=== PATIENT | male | born 1975 | race African-American/Black ===

== ENCOUNTER 2017-01-31 12:02 | Emergency (ER) | payer OTHER ==
[~2017-01-31] VITALS: Ht 185.4 cm; Wt 150.0 kg
[~2017-01-31 12:02] MED LIST: DOXY100T PO; Z.0.NO CURRENT MEDS
[2017-01-31 12:04] VITALS: BP 128/72; PULSE 74; RESP 16; TEMP 98.7; O2SAT 97
[2017-01-31] MEDS ORDERED: BYST10TA2 PO (12:40)
[2017-01-31] MEDS ORDERED: AZIL40TA PO (12:40)
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
[2017-01-31] MEDS ORDERED: SODIUM CHLOR 0.9% 1000 ML INJ 1,000 ML IV ONE (13:00)
[2017-01-31] MEDS ORDERED: KETOROLAC TROMETHAMINE 30 MG/ML (IVP) VIAL IV PUSH ONE (13:00)
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
[2017-01-31 13:25] LABS: AUTOMATED NEUTROPHIL # 5.6 TH/MM3 (1.8-7.7); BASOPHIL # 0.1 TH/MM3 (0-0.2); BASOPHIL % 0.9 % (0.0-2.0); EOSINOPHIL # 0.2 TH/MM3 (0-0.4); EOSINOPHIL % 1.7 % (0.0-4.0); HEMATOCRIT 47.4 % (39.0-51.0); HEMO FLAGS DIFF FINAL; LYMPH % 26.7 % (9.0-44.0); LYMPHOCYTE # 2.6 TH/MM3 (1.0-4.8); MEAN CELL VOLUME 84.1 FL (80.0-100.0); MEAN CORPUSCULAR HEMOGLOBIN 27.8 PG (27.0-34.0); MEAN CORPUSCULAR HGB CONC 33.1 % (32.0-36.0); MONO % 13.2 % (0.0-8.0); NEUT % 57.5 % (16.0-70.0); PLATELET COUNT 153 TH/MM3 (150-450); RED BLOOD COUNT 5.63 MIL/MM3 (4.50-5.90); RED CELL DISTRIBUTION WIDTH 14.3 % (11.6-17.2); WHITE BLOOD COUNT 9.7 TH/MM3 (4.0-11.0)
[2017-01-31 13:38] LABS: ALT (GPT) 43 U/L (12-78); ANION GAP 9 MEQ/L (5-15); AST (GOT) 31 U/L (15-37); BICARBONATE 24.8 MEQ/L (21.0-32.0); BLOOD UREA NITROGEN 14 MG/DL (7-18); CHLORIDE 108 MEQ/L (98-107); GLOMERULAR FILTRATION RATE 76 ML/MIN (>89); SODIUM (NA) 142 MEQ/L (136-145)
[2017-01-31 13:40] LABS: ALKALINE PHOSPHATASE 69 U/L (45-117); TOTAL BILIRUBIN ADULT 0.6 MG/DL (0.2-1.0)
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
[2017-01-31] MEDS ORDERED: IOHEXOL 350 MG/ML 10 ML VIAL (for RAD DIAG) IV ONE (14:23)
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
[2017-01-31] MEDS ORDERED: IBUP800T23 PO (14:45)
[2017-01-31] MEDS ORDERED: ROBA500T PO (14:45)
== END 2017-01-31 15:01 | disposition home or self-care (01) ==
LOC: NEPB 12:02
DX: S39.012A Strain of muscle, fascia and tendon of lower back, initial encounter (principal); S30.1XXA Contusion of abdominal wall, initial encounter; T22.112A Burn of first degree of left forearm, initial encounter; R07.89 Other chest pain; R51 Headache; I10 Essential (primary) hypertension; V89.2XXA Person injured in unspecified motor-vehicle accident, traffic, initial encounter; Y92.410 Unspecified street and highway as the place of occurrence of the external cause
CPT/HCPCS: 71010; 74177; 80053; 85025; 96361; 96374; 99284; J1885; J7030; Q9967

== ENCOUNTER 2017-02-08 13:36 | Emergency (ER) | payer OTHER ==
[~2017-02-08] VITALS: Ht 185.4 cm; Wt 140.0 kg
[~2017-02-08 13:36] MED LIST changes: +AZIL40TA PO; +BYST10TA2 PO; +IBUP800T23 PO; +ROBA500T PO
[2017-02-08 13:37] VITALS: BP 130/84; PULSE 64; RESP 16; TEMP 98.2; O2SAT 98
[2017-02-08 13:55] VITALS: BP 109/61; PULSE 62; RESP 18; O2SAT 99
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
[2017-02-08] MEDS ORDERED: ACETAMINOPHEN 500 MG CPLT PO ONE (14:30)
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
[2017-02-08] MEDS ORDERED: IBUP800T23 PO (17:24)
== END 2017-02-08 17:43 | disposition home or self-care (01) ==
LOC: NEPA 13:36
DX: R51 Headache (principal); H53.8 Other visual disturbances; I10 Essential (primary) hypertension; V89.2XXD Person injured in unspecified motor-vehicle accident, traffic, subsequent encounter
CPT/HCPCS: 70450